=== PATIENT | female | born 1990 | race Caucasian/White ===

== ENCOUNTER → 2020-09-27 | Outpatient (CLI) ==
[~2020-09-27] MED LIST: IBUP-1114 PO
== END ==
LOC: M LABSMTC 12:38
PROVIDERS: ATTEND Orthopaedic Surgery
DX: Z11.59 Encounter for screening for other viral diseases (principal)

== ENCOUNTER → 2020-09-27 | Outpatient (CLI) | LOC: M LABSMTC 14:48 | PROVIDERS: ATTEND Anesthesiology | DX: Z20.828 Contact with and (suspected) exposure to other viral communicable diseases (principal) ==

== ENCOUNTER 2020-09-30 12:13 | Day surgery (SDC) | payer OTHER ==
[~2020-09-30] VITALS: Ht 175.3 cm; Wt 117.0 kg
[~2020-09-30 12:13] MED LIST changes: +LR 1,000 ML IV ONE; +MIDAZOLAM INJ 2MG/2ML VIAL (J2250 PER 1MG) IV PRN; +ceFAZolin SOD 2 GM in IV 1 EA IV ONE; +fentaNYL 100 MCG/2 ML INJECTION (J3010) IV PRN
[2020-09-30] MEDS ORDERED: dexameTHASONE 10MG/1ML VIAL PRES.FREE (J1100 PER 1MG) As Ordered ONE (13:14)
[2020-09-30] MEDS ORDERED: MIDAZOLAM INJ 2MG/2ML VIAL (J2250 PER 1MG) As Ordered ONE (13:15)
[2020-09-30] MEDS ORDERED: LIDOCAINE 1% MDV 20ML VIAL As Ordered ONE (13:15)
[2020-09-30] MEDS ORDERED: fentaNYL 100 MCG/2 ML INJECTION (J3010) As Ordered ONE ×2 (13:15→13:46)
[2020-09-30] MEDS ORDERED: ROPIvacaine 0.5% 30ML INJECTION (J2795 PER 1MG) As Ordered ONE (13:15)
[2020-09-30] MEDS ORDERED: EPINEPHrine INJ 1 MG/ML 1ML AMP XX ONE (13:45)
[2020-09-30] MEDS ORDERED: ROPIvacaine 0.5% 30ML INJECTION (J2795 PER 1MG) XX ONE (13:45)
[2020-09-30] MEDS ORDERED: dexameTHASONE 10MG/1ML VIAL PRES.FREE (J1100 PER 1MG) XX ONE (13:45)
[2020-09-30] MEDS ORDERED: ROCURONIUM BROMIDE 50 MG/5 ML VIAL As Ordered ONE (13:46)
[2020-09-30] MEDS ORDERED: ACETAMINOPHEN 500 MG TAB PO SCH (14:00)
[2020-09-30] MEDS ORDERED: LIDOCAINE 2% 100MG/5ML SDV (FOR ANES.) As Ordered ONE (14:24)
[2020-09-30] MEDS ORDERED: propofoL 200 MG/20 ML VIAL As Ordered ONE ×2 (14:24→15:03)
[2020-09-30] MEDS ORDERED: dexameTHASONE 4 MG/ML 1ML VIAL (J1100 PER 1MG) As Ordered ONE (14:24)
[2020-09-30] MEDS ORDERED: ONDANSETRON 4MG/2ML VIAL As Ordered ONE (14:25)
[2020-09-30] MEDS ORDERED: METOCLOPRAMIDE INJ 10MG/2ML VIAL (J2765 PER 1) As Ordered ONE (14:25)
[2020-09-30] MEDS ORDERED: SUGAMMADEX SODIUM 500 MG/5 ML VIAL (BRIDION) As Ordered ONE (15:03)
--- NOTE | 2020-09-30 16:10 | RO ---
OPERATIVE NOTE DATE OF OPERATION: 09/30/2020 PREOPERATIVE DIAGNOSIS: Right Achilles complete tear. POSTOPERATIVE DIAGNOSIS: Right Achilles complete tear. PROCEDURE: Right Achilles repair. SURGEON: Ruth Beltran M.D. BAND INSTRUMENT REPAIRER: None. ANESTHESIA: General endotracheal with popliteal nerve block. ESTIMATED BLOOD LOSS: 25 mL. COMPLICATIONS: None. CONDITION: Stable to recovery. INDICATIONS: Cami Johnson is a 30-year-old female who sustained a right Achilles tendon complete rupture. She elected for operative management. Risks and benefits of surgery were discussed with her in detail to include, but not limited to infection, damage to nerves and blood vessels, continued pain and stiffness, need for additional procedures. Informed consent was obtained. DESCRIPTION OF PROCEDURE: The patient was met in the preoperative holding area where her right lower extremity was marked as the correct operative site. She was taken to the PACU and underwent a nerve block. She was then taken to the operating room where she underwent general anesthesia. She was placed in the prone position. Bony prominences were well padded. A well-padded tourniquet had been placed on the right upper thigh. Antibiotics were given within 60 minutes of incision. An official time-out was held where the correct patient, operative site, and operative procedure were verified. An incision was made over the Achilles tendon. The peritenon was found to be incompetent from the rupture site. The areas that were competent were incised. The sural nerve was protected throughout the case laterally. There was a complete rupture of the tendon just distal to the musculotendinous junction. Copious irrigation was performed after the tendon ends were isolated. A Krackow suture was performed with #2 FiberWire on both the distal and proximal ends of the tendon. Next, using a straight Shailesh needle Ra type suture was woven through both tendon ends as well. The Ra sutures were tied down first followed by the Krackow sutures. There was a good repair. Copious irrigation was performed. Given the incompetence of the peritenon, I was unable to close this. There were no prominent fiber knots, however. Soft tissues were closed using 3-0 Vicryl and skin was closed using 3-0 nylon. A sterile dressing was applied followed by a well-padded splint. PLAN: The patient will be nonweightbearing in the right lower extremity. She will be on Xarelto for two weeks for DVT prophylaxis. I will see her back in a week for a wound check and cast placement.
[2020-09-30] MEDS ORDERED: LR 1,000 ML IV SCH ×2 (16:30→17:45)
[2020-09-30] MEDS ORDERED: fentaNYL 100 MCG/2 ML INJECTION (J3010) IV PRN (17:45)
[2020-09-30] MEDS ORDERED: oxyCODONE 5MG TAB PO PRN (17:45)
[2020-09-30] MEDS ORDERED: ONDANSETRON 4MG/2ML VIAL IV PRN (17:45)
[2020-10-01] MEDS ORDERED: RIVAROXABAN 10 MG TAB (XARELTO) PO SCH (18:00)
== END 2020-09-30 17:05 | disposition home or self-care (01) ==
LOC: M SDC 12:13
PROVIDERS: ATTEND Orthopaedic Surgery
DX: M66.871 Spontaneous rupture of other tendons, right ankle and foot (principal)
CPT/HCPCS: 27650; 64445; 81025; J0690; J1100; J2250; J2405; J2765; J3010